=== PATIENT | male | born 1995 | race Caucasian/White ===

== ENCOUNTER 2019-02-14 11:38 | Emergency (ER) | payer OTHER ==
[2019-02-14] MEDS ORDERED: LIDOCAINE BUFFERED 1% 50 ML SOL SC ONE (11:50)
[2019-02-14 11:51] VITALS: RESP 20; TEMP 97.8
[2019-02-14] MEDS ORDERED: LIDOCAINE HCL 1% MPF 30 SOL ONE (11:53)
[2019-02-14] MEDS ORDERED: LIDOCAINE HCL 1% MDV 50 ML SOL SC ONE (12:00)
[2019-02-14] MEDS ORDERED: LIDOCAINE 1% W/EPI MPF 30 ML SOL ONE (12:01)
[2019-02-14] MEDS ORDERED: AMPICILLIN/SULBACTAM 3 GM PDS 3 GM in SODIUM CHLORIDE 0.9% 100 ML 100 ML IV SCH (12:15)
[2019-02-14] MEDS ORDERED: AMPICILLIN/SULBACTAM 3 GM PDS ONE (12:26)
[2019-02-14] MEDS ORDERED: SODIUM CHLORIDE 0.9% FLUSH 10 ML SOL IV PRN (12:29)
[2019-02-14] MEDS ORDERED: FENTANYL 100MCG/2ML SOL IV ONE (13:13)
[2019-02-14] MEDS ORDERED: SODIUM CHLORIDE 0.9% 1000ML 1,000 ML IV SCH (13:15)
[2019-02-14 13:47] VITALS: O2SAT 98
[2019-02-14 13:49] VITALS: BP 136/94; PULSE 100
== END 2019-02-14 14:05 | disposition short-term general hospital (02) | DRG 914 ==
LOC: ED 11:38
DX: S68.123A Partial traumatic metacarpophalangeal amputation of left middle finger, initial encounter (principal); S68.125A Partial traumatic metacarpophalangeal amputation of left ring finger, initial encounter; W23.0XXA Caught, crushed, jammed, or pinched between moving objects, initial encounter
CPT/HCPCS: 11730; 73130; 96365; 96374; 99283; 99285; J0295; J3010; A6402; J2001